=== PATIENT | female | born 1960 | race Caucasian/White ===

== ENCOUNTER 2018-02-13 22:30 | Emergency (ER) | payer BC ==
[2018-02-13] MEDS ORDERED: Diphtheria,Pertussis(Acell),Tetanus Vaccine 0.5 ML SDV IM ONE (23:18)
--- NOTE | 2018-02-13 23:24 | EDM.PDOC ---
ED HPI GENERAL MEDICAL PROBLEM - General Chief Complaint: General Stated Complaint: FISH HOOK Time Seen by Provider: 02/13/18 23:00 Source of Information: Reports: Patient History Limitations: Reports: No Limitations - History of Present Illness INITIAL COMMENTS - FREE TEXT/NARRATIVE: This lady was fishing and somehow managed to hook the middle finger of her left hand with a fishing lure. This happened a short while ago. Her attempted removal but was unsuccessful - Related Data Allergies Allergy/AdvReac Type Severity Reaction Status Date / Time No Known Allergies Allergy Verified 02/13/18 22:47 Home Meds: Home Meds Methimazole 5 mg PO DAILY 02/13/18 [History] Past Medical History Endocrine/Metabolic History: Reports: Hyperthyroidism Social & Family History - Tobacco Use Smoking Status *Q: Unknown Ever Smoked ED ROS GENERAL - Review of Systems Review Of Systems: ROS reveals no pertinent complaints other than HPI. ED EXAM, GENERAL - Physical Exam Exam: See Below Exam Limited By: No Limitations General Appearance: Alert, WD/WN, Mild Distress Extremities: Other (There is a small fishhook attached to a fishing lower it's embedded and the middle phalanx of the left hand the proximal end of the digit of the distal phalanx on the thumb side. Does not penetrate the joint.) Course - Vital Signs Last Recorded V/S: Last Vital Signs Temp 36.1 C 02/13/18 22:48 Pulse 63 02/13/18 22:48 Resp 16 02/13/18 22:48 BP 156/82 H 02/13/18 22:48 Pulse Ox 98 02/13/18 22:48 - Orders/Labs/Meds Orders: Active Orders 24 hr Category Date Time Status Vaccines to be Administered [RC] PER UNIT ROUTINE Care 02/13/18 23:18 Active Meds: Medications Discontinued Medications Generic Name Dose Route Start Last Admin Trade Name Freq PRN Reason Stop Dose Admin Diphtheria/Tetanus/Acell Pertussis 0.5 ml 02/13/18 23:18 Adacel IM 02/13/18 23:19 .ONCE ONE - Re-Assessments/Exams Free Text/Narrative Re-Assessment/Exam: 02/13/18 23:26 I offered to anesthetize the finger first however I told her that usually these things can be snatched out with less pain than the lidocaine causes. She agreed. Used a [employer] wireless manager to cut off the note from the rest of the lure. The hook was then grasped with a small needle menendez which was the only instrument available and was easily removed in a single snatch maneuver. There is a little bit of bleeding but pressure was applied. Wound was cleaned by the nurse and dressing applied. The patient received a tdap injection Departure - Departure Time of Disposition: 23:22 Disposition: Home, Self-Care 01 Condition: Fair Clinical Impression: Fish hook injury of finger of left hand - Discharge Information Referrals: PCP,None [Primary Care Provider] - Forms: ED Department Discharge Additional Instructions: Wash with soap and water daily. Apply a dab of antibiotic ointment and covered with a Band-Aid. This should heal quickly. There is very little risk of infection so antibiotics are not recommended but if you do notice increasing redness and swelling be sure to see your Dr. or return to the ER - My Orders Last 24 Hours: My Active Orders 02/13/18 23:18 Vaccines to be Administered [RC] PER UNIT ROUTINE - Assessment/Plan Last 24 Hours: My Active Orders 02/13/18 23:18 Vaccines to be Administered [RC] PER UNIT ROUTINE
== END 2018-02-13 23:38 | disposition home or self-care (01) ==
LOC: JP.ED 22:30
DX: S60.453A Superficial foreign body of left middle finger, initial encounter (principal); Z23 Encounter for immunization; W45.8XXA Other foreign body or object entering through skin, initial encounter
CPT/HCPCS: 90471; 90715; 99283-25